=== PATIENT | female | born 1965 | race Caucasian/White ===

== ENCOUNTER 2021-06-24 17:39 | Emergency (ER) | payer OTHER ==
[2021-06-24 17:58] VITALS: BP 153/96; PULSE 93; TEMP 98.2; BMI 24.2
[2021-06-24] MEDS ORDERED: IBUPROFEN 600 MG TABLET (FP) PO ONE ×2 (18:38→18:40)
== END 2021-06-24 23:03 | disposition home or self-care (01) ==
LOC: JERFT 17:39
DX: N64.4 Mastodynia (principal)
CPT/HCPCS: 71046-TC-FY; 71250-TC; 99284-25

== ENCOUNTER 2024-01-23 19:06 | Inpatient (IN) | payer OTHER ==
[2024-01-23] MEDS ORDERED: KETOROLAC TROMETHAMINE 30 MG/1 ML VIAL ONE (20:36)
[2024-01-23] MEDS: KETOROLAC TROMETHAMINE 30 MG/1 ML VIAL IVPUSH ONE (20:50)
[2024-01-23] MEDS: KETOROLAC TROMETHAMINE 30 MG/1 ML VIAL IM ONE (20:51)
[2024-01-23 20:54] LABS: HEMATOCRIT 31.6 % (32.4-45.2); HEMOGLOBIN 10.2 GM/dL (10.7-15.3); MCH 31.5 pg (25.7-33.7); MCHC 32.3 g/dl (32.0-36.0); MEAN CELL VOLUME 97.3 fl (80-96); MEAN PLT VOLUME 8.5 fl (7.5-11.1); PLATELET COUNT 304 10^3/uL (134-434); RBC 3.24 M/mm3 (3.60-5.2); RDW 18.1 % (11.6-15.6); WHITE BLOOD COUNT 21.3 K/mm3 (4.0-10.0)
[2024-01-23 21:03] LABS: INR 1.07 (0.83-1.09); PROTHROMBIN TIME (PATIENT) 12.1 SEC (9.7-13.0)
[2024-01-23 21:05] LABS: ADD RBC MORPHOLOGY YES
[2024-01-23 21:06] LABS: ACTIVATED PTT 29.5 SECONDS (25.2-36.5)
[2024-01-23 21:29] LABS: POTASSIUM 4.1 mmol/L (3.5-5.1)
[2024-01-23 21:31] LABS: ALBUMIN 2.8 g/dl (3.4-5.0); BLOOD UREA NITROGEN 15.4 mg/dL (7-18)
[2024-01-23 21:36] LABS: BILIRUBIN,TOTAL 0.4 mg/dL (0.2-1); TOT PROT 6.2 g/dl (6.4-8.2)
[2024-01-23 22:01] LABS: ANISOCYTOSIS 2+; MACROCYTOSIS 2+; ROULEAU 1+
[2024-01-23] MEDS ORDERED: AZITHROMYCIN IVPB 500 MG/250 ML BAG IVPB ONE (22:03)
[2024-01-23] MEDS ORDERED: CEFTRIAXONE 1 GM/50 ML BAG ONE (22:03)
[2024-01-23] MEDS: AZITHROMYCIN IVPB 500 MG in DEXTROSE 5%-WATER - 250 ML IVPB ONE (22:15)
[2024-01-23] MEDS: SODIUM CHLORIDE 0.9% 1000 ML INFUS.BAG IV STA (22:15)
[2024-01-23] MEDS: CEFTRIAXONE 1 GM in DEXTROSE 5%-WATER - 100 ML IVPB ONE (22:15)
[2024-01-23 22:49] LABS: VENOUS BASE EXCESS -1.7 mmol/L (-2-2); VENOUS O2 SATURATION 25.4 % (70-80); VENOUS PCO2 45.5 mmHg (38-52); VENOUS PH 7.34 (7.310-7.410)
[2024-01-23] MEDS ORDERED: ALBUTEROL SO4 2.5/IPRATROPIUM 0.5 INH SOL 3 ML VIAL.NEB. NEB ONE ×2 (23:13→23:14)
[2024-01-23] MEDS: ALBUTEROL SO4 2.5/IPRATROPIUM 0.5 INH SOL 3 ML VIAL.NEB. NEB ONE (23:30)
[2024-01-24 01:22] LABS: EPI CELLS 24 /uL (0-25.1); HYALINE CASTS 0 /uL (0-3.1); PH,URINE 6.5 (5.0-8.0); URINE APPEARANCE CLEAR; URINE BACTERIA 4743 /uL (0-1359); URINE BILIRUBIN NEGATIVE (NEGATIVE); URINE COLOR YELLOW; URINE GLUCOSE (UA) NEGATIVE (NEGATIVE); URINE KETONE NEGATIVE (NEGATIVE); URINE LEUK ESTERASE TRACE (NEGATIVE); URINE NITRITE POSITIVE (NEGATIVE); URINE PROTEIN NEGATIVE (NEGATIVE); URINE RBC 16 /uL (0-23.9); URINE UROBILINOGEN 0.2 mg/dL (0.2-1.0); URINE WBC 8 /uL (0-25.8)
[2024-01-24 02:19] LABS: URINE CRYSTALS NONE SEEN /hpf
[2024-01-24] MEDS: IBUPROFEN 800 MG/8 ML IJ IVPB ONE (03:03)
[2024-01-24] MEDS: methylPREDNISolone NA SUCC 40 MG/1 ML VIAL IVPUSH SCH ×3 (03:03→17:52)
[2024-01-24] MEDS ORDERED: CYCLOBENZAPRINE HCL 5 MG TABLET ONE (04:50)
[2024-01-24] MEDS: CYCLOBENZAPRINE HCL 10 MG TABLET (FP) PO ONE (04:52)
[2024-01-24] MEDS: ALBUTEROL SO4 HFA INHALER IH PRN (05:26)
[2024-01-24] MEDS ORDERED: ALBUTEROL SO4 HFA INHALER IH ONE (05:26)
[2024-01-24 07:43] LABS: BASO % 0.5 % (0-2.0); HEMATOCRIT 29.2 % (32.4-45.2); HEMOGLOBIN 9.3 GM/dL (10.7-15.3); LYMPH % 1.3 % (8-40); MCH 31.3 pg (25.7-33.7); MCHC 31.9 g/dl (32.0-36.0); MEAN CELL VOLUME 98.3 fl (80-96); MEAN PLT VOLUME 8.7 fl (7.5-11.1); MONO % 4.1 % (3.8-10.2); NEUT % 94.1 % (42.8-82.8); PLATELET COUNT 295 10^3/uL (134-434); RBC 2.97 M/mm3 (3.60-5.2); RDW 17.9 % (11.6-15.6); WHITE BLOOD COUNT 18.4 K/mm3 (4.0-10.0)
[2024-01-24 08:10] LABS: POTASSIUM 4.3 mmol/L (3.5-5.1)
[2024-01-24 08:14] LABS: IRON SERUM < 5 ug/dL (50-175); TOTAL IRON BINDING CAPACITY 268 ug/dL (250-450)
[2024-01-24 08:18] LABS: ALBUMIN 2.4 g/dl (3.4-5.0); BLOOD UREA NITROGEN 13.4 mg/dL (7-18); CALCIUM 7.9 mg/dL (8.5-10.1)
[2024-01-24 08:23] LABS: BILIRUBIN,TOTAL 0.3 mg/dL (0.2-1); TOT PROT 5.4 g/dl (6.4-8.2)
[2024-01-24] MEDS: KETOROLAC TROMETHAMINE 30 MG/1 ML VIAL IVPUSH PRN (09:01)
[2024-01-24] MEDS ORDERED: NICOTINE 14 MG/24 HOURS TOPICAL PATCH TD SCH (10:00)
[2024-01-24 10:27] VITALS: BMI 22.6
[2024-01-24] MEDS: ENOXAPARIN NA (PORCINE) 40 MG/0.4 ML DISP.SYRIN SQ SCH (10:34)
[2024-01-24] MEDS: FAMOTIDINE 20 MG TABLET PO SCH (10:34)
[2024-01-24] MEDS: LISINOPRIL 20 MG TABLET PO SCH (10:34)
[2024-01-24] MEDS: NICOTINE 7 MG/24 HOURS TOPICAL PATCH TD SCH (10:35)
[2024-01-24] MEDS: BUDESONIDE/FORMETEROL FUMARATE 160/4.5 mcg INHALER IH SCH (10:36)
[2024-01-24 10:50] LABS: ANISOCYTOSIS 0; MACROCYTOSIS 0
[2024-01-24] MEDS: BUDESONIDE/FORMETEROL FUMARATE 160/4.5 mcg INHALER IH ONE (10:51)
[2024-01-24] MEDS: ALBUTEROL SO4 2.5/IPRATROPIUM 0.5 INH SOL 3 ML VIAL.NEB. NEB SCH (11:21)
[2024-01-24] MEDS: LIDOCAINE 4% PATCH TP SCH (12:58)
[2024-01-24] MEDS: PIPERACILLIN/TAZOB 4.5 GM 4.5 GM/100 ML BAG IVPB SCH ×2 (13:10→17:11)
[2024-01-24] MEDS: VANCOMYCIN/WATER FOR INJ (PEG) 1,000 MG/200 ML BAG IVPB SCH (13:39)
[2024-01-24] MEDS ORDERED: LIDOCAINE HCL 1%, 10 MG/ML (20ML VIAL) ONE (14:15)
[2024-01-24 15:53] LABS: BF WBC & OTHER NUCLEATED CELLS 4042 /mm3; BODY FLUID MESOTHELIAL 1 %; BODY FLUID MONOCYTE 2 %
[2024-01-24] MEDS: LIDOCAINE 5% TOPICAL PATCH TP SCH (17:50)
[2024-01-24] MEDS ORDERED: PIPERACILLIN/TAZOB 4.5 GM 4.5 GM/100 ML BAG IVPB SCH (18:00)
[2024-01-24] MEDS: DEXTROAMPHETAMINE PO SCH (18:00)
[2024-01-24] MEDS: [UNRECOGNIZED DRUG - OTHER] PO SCH (18:00)
[2024-01-24] MEDS: AMPHETAMINE PO SCH (18:00)
[2024-01-24] MEDS: CYCLOBENZAPRINE HCL 10 MG TABLET (FP) PO PRN (19:50)
[2024-01-24] MEDS ORDERED: CEFTRIAXONE 1 G/50 ML PREMIX 50 ML IVPB ONE (22:00)
[2024-01-24] MEDS: AZITHROMYCIN IVPB 500 MG/250 ML BAG IVPB ONE (22:36)
[2024-01-24] MEDS: LIDOCAINE PATCH REMOVAL MC SCH ×2 (22:36)
[2024-01-25 07:01] LABS: HEMATOCRIT 28.6 % (32.4-45.2); MCH 30.8 pg (25.7-33.7); MCHC 31.5 g/dl (32.0-36.0); MEAN CELL VOLUME 97.8 fl (80-96); MEAN PLT VOLUME 8.5 fl (7.5-11.1); PLATELET COUNT 358 10^3/uL (134-434); RBC 2.92 M/mm3 (3.60-5.2); RDW 17.7 % (11.6-15.6); WHITE BLOOD COUNT 20.5 K/mm3 (4.0-10.0)
[2024-01-25 07:21] LABS: ALBUMIN 2.2 g/dl (3.4-5.0); BLOOD UREA NITROGEN 15.8 mg/dL (7-18); CALCIUM 8.2 mg/dL (8.5-10.1); MAGNESIUM 2.3 mg/dL (1.8-2.4)
[2024-01-25 07:25] LABS: BILIRUBIN,TOTAL 0.3 mg/dL (0.2-1); CREATININE 0.9 mg/dL (0.55-1.3); TOT PROT 5.3 g/dl (6.4-8.2)
[2024-01-25] MEDS: NICOTINE 14 MG/24 HOURS TOPICAL PATCH TD SCH (09:19)
[2024-01-25 09:53] LABS: ANISOCYTOSIS 0; MACROCYTOSIS 0
[2024-01-25 12:40] LABS: INR 1.08 (0.83-1.09); PROTHROMBIN TIME (PATIENT) 12.2 SEC (9.7-13.0)
[2024-01-25] MEDS: LIDOCAINE 5% TOPICAL PATCH TP ONE (14:36)
[2024-01-25 15:47] LABS: HIV INTERPRETATION NEGATIVE (NEGATIVE)
[2024-01-25] MEDS: LIDOCAINE PATCH REMOVAL MC ONE (21:10)
[2024-01-26 09:18] LABS: HEMATOCRIT 26.6 % (32.4-45.2); HEMOGLOBIN 8.8 GM/dL (10.7-15.3); MCH 31.6 pg (25.7-33.7); MEAN CELL VOLUME 95.7 fl (80-96); MEAN PLT VOLUME 8.4 fl (7.5-11.1); PLATELET COUNT 375 10^3/uL (134-434); RBC 2.78 M/mm3 (3.60-5.2); RDW 17.8 % (11.6-15.6); WHITE BLOOD COUNT 15.2 K/mm3 (4.0-10.0)
[2024-01-26 09:39] LABS: ALBUMIN 2.2 g/dl (3.4-5.0); CALCIUM 8.5 mg/dL (8.5-10.1); MAGNESIUM 2.5 mg/dL (1.8-2.4)
[2024-01-26 09:44] LABS: BILIRUBIN,TOTAL 0.3 mg/dL (0.2-1); TOT PROT 5.6 g/dl (6.4-8.2)
[2024-01-26 10:22] LABS: ANISOCYTOSIS 0; MACROCYTOSIS 0
[2024-01-26 10:25] LABS: PLATELET ESTIMATE ADEQUATE
[2024-01-26] MEDS ORDERED: guaiFENesin 200 MG/10 ML 10 ML UNIT-DOSE CUPS PO PRN (11:01)
[2024-01-26] MEDS: guaiFENesin 200 MG/10 ML 10 ML UNIT-DOSE CUPS PO SCH (13:45)
[2024-01-26] MEDS: FAMOTIDINE 20 MG TABLET PO ONE (22:35)
[2024-01-26] MEDS: ACETAMINOPHEN 1000 MG/100 ML BAG IVPB PRN (23:55)
[2024-01-27] MEDS: ALBUTEROL SO4 2.5/IPRATROPIUM 0.5 INH SOL 3 ML VIAL.NEB. NEB ONE (05:42)
[2024-01-27 08:10] LABS: HEMATOCRIT 25.6 % (32.4-45.2); HEMOGLOBIN 8.4 GM/dL (10.7-15.3); MCH 31.6 pg (25.7-33.7); MEAN PLT VOLUME 8.1 fl (7.5-11.1); MONO % 4.1 % (3.8-10.2); NEUT % 89.9 % (42.8-82.8); PLATELET COUNT 387 10^3/uL (134-434); RBC 2.67 M/mm3 (3.60-5.2); RDW 17.7 % (11.6-15.6); WHITE BLOOD COUNT 9.8 K/mm3 (4.0-10.0)
[2024-01-27 08:35] LABS: POTASSIUM 4.2 mmol/L (3.5-5.1)
[2024-01-27 08:52] LABS: BLOOD UREA NITROGEN 26.8 mg/dL (7-18); CALCIUM 8.2 mg/dL (8.5-10.1); MAGNESIUM 2.2 mg/dL (1.8-2.4)
[2024-01-27 08:56] LABS: CREATININE 1.1 mg/dL (0.55-1.3)
[2024-01-27 08:57] LABS: BILIRUBIN,TOTAL 0.5 mg/dL (0.2-1)
[2024-01-27 09:00] LABS: TOT PROT 5.2 g/dl (6.4-8.2)
[2024-01-27] MEDS: ONDANSETRON 4 MG/2 ML VIAL IVPUSH ONE (23:16)
[2024-01-28] MEDS: ACETAMINOPHEN 1000 MG/100 ML BAG IVPB ONE (05:48)
[2024-01-28 07:32] LABS: EOS % 0.1 % (0-4.5); HEMATOCRIT 26.3 % (32.4-45.2); HEMOGLOBIN 8.9 GM/dL (10.7-15.3); LYMPH % 21.7 % (8-40); MCH 31.9 pg (25.7-33.7); MCHC 33.7 g/dl (32.0-36.0); MEAN CELL VOLUME 94.9 fl (80-96); MEAN PLT VOLUME 7.9 fl (7.5-11.1); MONO % 9.1 % (3.8-10.2); NEUT % 69.1 % (42.8-82.8); PLATELET COUNT 429 10^3/uL (134-434); RBC 2.77 M/mm3 (3.60-5.2); RDW 17.7 % (11.6-15.6); WHITE BLOOD COUNT 8.7 K/mm3 (4.0-10.0)
[2024-01-28 07:38] LABS: POTASSIUM 3.8 mmol/L (3.5-5.1)
[2024-01-28 07:43] LABS: BLOOD UREA NITROGEN 19.2 mg/dL (7-18); CALCIUM 8.3 mg/dL (8.5-10.1)
[2024-01-28 07:45] LABS: CREATININE 1.1 mg/dL (0.55-1.3)
[2024-01-28] MEDS: methylPREDNISolone NA SUCC 40 MG/1 ML VIAL IVPUSH SCH (10:29)
[2024-01-28] MEDS: ACETAMINOPHEN 325 MG TABLET (FP) PO PRN (12:08)
[2024-01-29 07:05] LABS: BASO % 0.1 % (0-2.0); EOS % 0.4 % (0-4.5); HEMATOCRIT 27.8 % (32.4-45.2); HEMOGLOBIN 9.3 GM/dL (10.7-15.3); LYMPH % 18.8 % (8-40); MCH 31.5 pg (25.7-33.7); MCHC 33.4 g/dl (32.0-36.0); MEAN CELL VOLUME 94.4 fl (80-96); MEAN PLT VOLUME 7.8 fl (7.5-11.1); MONO % 7.9 % (3.8-10.2); NEUT % 72.8 % (42.8-82.8); PLATELET COUNT 458 10^3/uL (134-434); RBC 2.94 M/mm3 (3.60-5.2); RDW 18.2 % (11.6-15.6); WHITE BLOOD COUNT 10.4 K/mm3 (4.0-10.0)
[2024-01-29 07:28] LABS: POTASSIUM 4.2 mmol/L (3.5-5.1)
[2024-01-29 07:34] LABS: ALBUMIN 2.1 g/dl (3.4-5.0); CALCIUM 8.8 mg/dL (8.5-10.1)
[2024-01-29 07:35] LABS: BLOOD UREA NITROGEN 18.1 mg/dL (7-18); MAGNESIUM 1.7 mg/dL (1.8-2.4)
[2024-01-29 07:38] LABS: CREATININE 0.8 mg/dL (0.55-1.3)
[2024-01-29 07:40] LABS: BILIRUBIN,TOTAL 0.4 mg/dL (0.2-1); TOT PROT 4.9 g/dl (6.4-8.2)
[2024-01-29] MEDS: MAGNESIUM 2GM/50ML STERILE WATER IVPB IVPB ONE (09:10)
[2024-01-29] MEDS: IBUPROFEN 600 MG TABLET (FP) PO PRN (10:45)
[2024-01-29] MEDS: hydrOXYzine PAMOATE 25 MG CAPSULE (FP) PO ONE (12:13)
[2024-01-30 06:58] LABS: HEMATOCRIT 25.7 % (32.4-45.2); HEMOGLOBIN 8.3 GM/dL (10.7-15.3); MCH 31.2 pg (25.7-33.7); MCHC 32.5 g/dl (32.0-36.0); MEAN CELL VOLUME 96.2 fl (80-96); MEAN PLT VOLUME 7.6 fl (7.5-11.1); PLATELET COUNT 450 10^3/uL (134-434); RBC 2.67 M/mm3 (3.60-5.2); RDW 17.7 % (11.6-15.6); WHITE BLOOD COUNT 11.4 K/mm3 (4.0-10.0)
[2024-01-30 07:07] LABS: POTASSIUM 4.1 mmol/L (3.5-5.1)
[2024-01-30 07:11] LABS: ALBUMIN 1.8 g/dl (3.4-5.0); BLOOD UREA NITROGEN 14.7 mg/dL (7-18); CALCIUM 8.6 mg/dL (8.5-10.1); MAGNESIUM 1.8 mg/dL (1.8-2.4)
[2024-01-30 07:14] LABS: CREATININE 0.8 mg/dL (0.55-1.3)
[2024-01-30 07:15] LABS: PHOSPHOROUS 3.1 mg/dL (2.5-4.9)
[2024-01-30 07:16] LABS: BILIRUBIN,TOTAL 0.3 mg/dL (0.2-1); TOT PROT 4.5 g/dl (6.4-8.2)
[2024-01-30] MEDS: predniSONE 10 MG TABLET (UD) PO SCH (10:02)
[2024-01-30] MEDS: LISINOPRIL 20 MG TABLET PO SCH (10:03)
[2024-01-30 16:09] LABS: IG A QN SERUM. 205 mg/dL (87-352)
[2024-01-30] MEDS: ACETAMINOPHEN 1000 MG/100 ML BAG IVPB ONE (17:01)
[2024-01-31] MEDS: IBUPROFEN 800 MG/8 ML IJ IVPB ONE (09:55)
[2024-01-31 12:48] LABS: HEMATOCRIT 31.7 % (32.4-45.2); HEMOGLOBIN 10.2 GM/dL (10.7-15.3); MCH 30.8 pg (25.7-33.7); MCHC 32.3 g/dl (32.0-36.0); MEAN CELL VOLUME 95.3 fl (80-96); MEAN PLT VOLUME 7.8 fl (7.5-11.1); PLATELET COUNT 561 10^3/uL (134-434); RBC 3.33 M/mm3 (3.60-5.2); RDW 17.8 % (11.6-15.6); WHITE BLOOD COUNT 13.9 K/mm3 (4.0-10.0)
[2024-01-31 13:10] LABS: POTASSIUM 4.1 mmol/L (3.5-5.1)
[2024-01-31 13:15] LABS: ALBUMIN 2.1 g/dl (3.4-5.0); CALCIUM 8.7 mg/dL (8.5-10.1)
[2024-01-31 13:16] LABS: BLOOD UREA NITROGEN 13.3 mg/dL (7-18)
[2024-01-31] MEDS: HYDROmorphone HCl 2 MG/ML VIAL IVPUSH ONE ×2 (13:18→20:40)
[2024-01-31 13:19] LABS: CREATININE 0.8 mg/dL (0.55-1.3); PHOSPHOROUS 2.6 mg/dL (2.5-4.9)
[2024-01-31 13:20] LABS: BILIRUBIN,TOTAL 0.6 mg/dL (0.2-1); TOT PROT 5.4 g/dl (6.4-8.2)
[2024-01-31] MEDS: HYDROmorphone HCl 2 MG/ML VIAL IVPB ONE (15:11)
[2024-01-31] MEDS: ACETAMINOPHEN 1000 MG/100 ML BAG IVPB SCH (17:17)
[2024-01-31] MEDS: ACETAMINOPHEN 500 MG TABLET (FP) PO SCH (18:06)
[2024-01-31] MEDS: CYCLOBENZAPRINE HCL 5 MG TABLET PO SCH (23:38)
[2024-02-01] MEDS: HYDROmorphone HCl 2 MG/ML VIAL IVPUSH ONE ×3 (01:05→13:17)
[2024-02-01 07:13] LABS: HEMATOCRIT 34.4 % (32.4-45.2); HEMOGLOBIN 10.9 GM/dL (10.7-15.3); MCH 30.8 pg (25.7-33.7); MCHC 31.7 g/dl (32.0-36.0); MEAN CELL VOLUME 97.2 fl (80-96); MEAN PLT VOLUME 7.8 fl (7.5-11.1); PLATELET COUNT 732 10^3/uL (134-434); RBC 3.54 M/mm3 (3.60-5.2); RDW 17.6 % (11.6-15.6); WHITE BLOOD COUNT 22.5 K/mm3 (4.0-10.0)
[2024-02-01 07:49] LABS: POTASSIUM 5.1 mmol/L (3.5-5.1)
[2024-02-01 07:51] LABS: CALCIUM 9.6 mg/dL (8.5-10.1)
[2024-02-01 07:52] LABS: BLOOD UREA NITROGEN 19.2 mg/dL (7-18); MAGNESIUM 2.1 mg/dL (1.8-2.4)
[2024-02-01 07:55] LABS: CREATININE 1.4 mg/dL (0.55-1.3); PHOSPHOROUS 4.8 mg/dL (2.5-4.9)
[2024-02-01 07:56] LABS: BILIRUBIN,TOTAL 0.5 mg/dL (0.2-1)
[2024-02-01 07:57] LABS: TOT PROT 5.4 g/dl (6.4-8.2)
[2024-02-01] MEDS: predniSONE 20 MG TABLET (UD) PO SCH (10:39)
[2024-02-01] MEDS: guaiFENesin 200 MG/10 ML 10 ML UNIT-DOSE CUPS PO SCH (18:08)
[2024-02-01] MEDS: ACETAMINOPHEN 500 MG TABLET (FP) PO SCH (18:08)
[2024-02-01] MEDS: PIPERACILLIN/TAZOB 4.5 GM 4.5 GM/100 ML BAG IVPB SCH (18:10)
[2024-02-01] MEDS: ALBUTEROL SO4 2.5/IPRATROPIUM 0.5 INH SOL 3 ML VIAL.NEB. NEB SCH (20:12)
[2024-02-01] MEDS: CYCLOBENZAPRINE HCL 5 MG TABLET PO SCH (20:29)
[2024-02-01] MEDS: LIDOCAINE PATCH REMOVAL MC SCH (21:23)
[2024-02-01] MEDS ORDERED: LIDOCAINE PATCH REMOVAL MC SCH (22:00)
[2024-02-01] MEDS: IBUPROFEN 400 MG TABLET (FP) PO ONE (23:55)
[2024-02-02] MEDS: ACETAMINOPHEN 1000 MG/100 ML BAG IVPB ONE (01:21)
[2024-02-02 09:52] LABS: HEMOGLOBIN 9.1 GM/dL (10.7-15.3); MCH 30.9 pg (25.7-33.7); MCHC 32.4 g/dl (32.0-36.0); MEAN CELL VOLUME 95.4 fl (80-96); MEAN PLT VOLUME 7.5 fl (7.5-11.1); PLATELET COUNT 638 10^3/uL (134-434); RBC 2.93 M/mm3 (3.60-5.2); WHITE BLOOD COUNT 13.4 K/mm3 (4.0-10.0)
[2024-02-02] MEDS: NICOTINE 14 MG/24 HOURS TOPICAL PATCH TD SCH (09:53)
[2024-02-02] MEDS: FAMOTIDINE 20 MG TABLET PO SCH (09:53)
[2024-02-02] MEDS: predniSONE 10 MG TABLET (UD) PO SCH (09:53)
[2024-02-02] MEDS: LIDOCAINE 5% TOPICAL PATCH TP SCH (09:53)
[2024-02-02] MEDS: BUDESONIDE/FORMETEROL FUMARATE 160/4.5 mcg INHALER IH SCH (09:57)
[2024-02-02 10:10] LABS: POTASSIUM 3.9 mmol/L (3.5-5.1)
[2024-02-02 10:12] LABS: CALCIUM 9.5 mg/dL (8.5-10.1)
[2024-02-02 10:13] LABS: ALBUMIN 1.8 g/dl (3.4-5.0); BLOOD UREA NITROGEN 22.4 mg/dL (7-18); MAGNESIUM 2.1 mg/dL (1.8-2.4)
[2024-02-02 10:16] LABS: CREATININE 1.6 mg/dL (0.55-1.3); PHOSPHOROUS 3.7 mg/dL (2.5-4.9)
[2024-02-02 10:17] LABS: BILIRUBIN,TOTAL 0.3 mg/dL (0.2-1)
[2024-02-02] MEDS ORDERED: ACETAMINOPHEN 1000 MG/100 ML BAG IVPB PRN (11:53)
[2024-02-02] MEDS: traMADol HCL 50 MG TABLET PO PRN (14:28)
[2024-02-02] MEDS: PIPERACILLIN/TAZOB 3.375 GM 3.375 GM in DEXTROSE 5%-WATER - 50 ML IVPB SCH (21:02)
[2024-02-03] MEDS: PIPERACILLIN/TAZOB 3.375 GM 3.375 GM in DEXTROSE 5%-WATER - 50 ML IVPB SCH (04:11)
[2024-02-03] MEDS: ALBUTEROL SO4 HFA INHALER IH PRN (04:35)
[2024-02-03 05:38] LABS: URINE APPEARANCE CLEAR; URINE BILIRUBIN NEGATIVE (NEGATIVE); URINE COLOR YELLOW; URINE GLUCOSE (UA) NEGATIVE (NEGATIVE); URINE KETONE NEGATIVE (NEGATIVE); URINE LEUK ESTERASE NEGATIVE (NEGATIVE); URINE NITRITE NEGATIVE (NEGATIVE); URINE PROTEIN NEGATIVE (NEGATIVE); URINE UROBILINOGEN 0.2 mg/dL (0.2-1.0)
[2024-02-03 07:55] LABS: BASO % 0.5 % (0-2.0); EOS % 1.5 % (0-4.5); HEMATOCRIT 21.5 % (32.4-45.2); HEMOGLOBIN 7.1 GM/dL (10.7-15.3); LYMPH % 20.7 % (8-40); MCH 31.1 pg (25.7-33.7); MCHC 33.2 g/dl (32.0-36.0); MEAN CELL VOLUME 93.8 fl (80-96); MEAN PLT VOLUME 6.8 fl (7.5-11.1); MONO % 12.6 % (3.8-10.2); NEUT % 64.7 % (42.8-82.8); PLATELET COUNT 556 10^3/uL (134-434); RBC 2.29 M/mm3 (3.60-5.2); RDW 17.9 % (11.6-15.6); WHITE BLOOD COUNT 7.6 K/mm3 (4.0-10.0)
[2024-02-03 08:14] LABS: POTASSIUM 3.7 mmol/L (3.5-5.1)
[2024-02-03 08:18] LABS: CALCIUM 8.7 mg/dL (8.5-10.1)
[2024-02-03 08:19] LABS: ALBUMIN 1.6 g/dl (3.4-5.0); BLOOD UREA NITROGEN 15.1 mg/dL (7-18)
[2024-02-03 08:22] LABS: CREATININE 1.1 mg/dL (0.55-1.3)
[2024-02-03 08:24] LABS: BILIRUBIN,TOTAL 0.3 mg/dL (0.2-1); TOT PROT 4.4 g/dl (6.4-8.2)
[2024-02-03 09:23] VITALS: RESP 18
[2024-02-03] MEDS: CEFTRIAXONE 2 GM-D5W BAG 2 GM/50 ML BAG IVPB SCH (10:34)
[2024-02-03] MEDS ORDERED: POLYETHYLENE GLYCOL (HEALTHYLAX) 3350 17 GM PACKET PO PRN (11:56)
[2024-02-03] MEDS: FERROUS SO4 325 MG TABLET (FP) PO SCH (13:07)
[2024-02-04 10:04] LABS: BASO % 0.5 % (0-2.0); HEMATOCRIT 24.1 % (32.4-45.2); HEMOGLOBIN 7.7 GM/dL (10.7-15.3); LYMPH % 20.2 % (8-40); MCH 30.6 pg (25.7-33.7); MCHC 31.9 g/dl (32.0-36.0); MEAN CELL VOLUME 96.2 fl (80-96); MONO % 8.1 % (3.8-10.2); NEUT % 69.2 % (42.8-82.8); PLATELET COUNT 619 10^3/uL (134-434); RDW 17.4 % (11.6-15.6); WHITE BLOOD COUNT 6.9 K/mm3 (4.0-10.0)
[2024-02-04 16:25] LABS: ALBUMIN 1.8 g/dl (3.4-5.0); BILIRUBIN,TOTAL 0.2 mg/dL (0.2-1); BLOOD UREA NITROGEN 11.6 mg/dL (7-18); CALCIUM 8.8 mg/dL (8.5-10.1); CREATININE 0.9 mg/dL (0.55-1.3); POTASSIUM 3.4 mmol/L (3.5-5.1)
[2024-02-04] MEDS: POTASSIUM CHLORIDE ORAL LIQUID 20 MEQ/15 ML PO ONE (17:35)
[2024-02-04] MEDS: MAG HYDROX/AL HYDROX/SIMETH 30 ML UNIT-DOSE CUP PO PRN (21:19)
[2024-02-05 06:44] VITALS: BP 139/95; PULSE 84; TEMP 98.4
[2024-02-05 09:12] LABS: BASO % 1.3 % (0-2.0); EOS % 2.5 % (0-4.5); HEMATOCRIT 24.2 % (32.4-45.2); HEMOGLOBIN 7.9 GM/dL (10.7-15.3); LYMPH % 16.7 % (8-40); MCH 31.5 pg (25.7-33.7); MCHC 32.8 g/dl (32.0-36.0); MEAN CELL VOLUME 95.9 fl (80-96); MEAN PLT VOLUME 6.8 fl (7.5-11.1); MONO % 7.2 % (3.8-10.2); NEUT % 72.3 % (42.8-82.8); PLATELET COUNT 710 10^3/uL (134-434); RBC 2.52 M/mm3 (3.60-5.2); RDW 17.3 % (11.6-15.6); WHITE BLOOD COUNT 7.3 K/mm3 (4.0-10.0)
[2024-02-05 09:39] LABS: POTASSIUM 4.4 mmol/L (3.5-5.1)
[2024-02-05 09:41] LABS: ALBUMIN 2.1 g/dl (3.4-5.0); BLOOD UREA NITROGEN 11.4 mg/dL (7-18); CALCIUM 9.4 mg/dL (8.5-10.1)
[2024-02-05 09:45] LABS: CREATININE 0.9 mg/dL (0.55-1.3)
[2024-02-05 09:46] LABS: BILIRUBIN,TOTAL 0.1 mg/dL (0.2-1); TOT PROT 5.5 g/dl (6.4-8.2)
== END 2024-02-05 13:48 | disposition home or self-care (01) | DRG 871 ==
LOC: JER 19:06 → JERFT 19:06 → JERBED 22:45 → J4W 01-24 08:38 → J5S 02-01 17:32
PROVIDERS: ADMIT Internal Medicine; ATTEND Internal Medicine
PROC: 0W9B3ZZ Drainage of Left Pleural Cavity, Percutaneous Approach (ICD-10-PCS; principal; 2024-01-25)
PROC: 3E0L317 Introduction of Other Thrombolytic into Pleural Cavity, Percutaneous Approach (ICD-10-PCS; 2024-01-25)
DX: A41.9 Sepsis, unspecified organism (principal); J18.9 Pneumonia, unspecified organism; J96.01 Acute respiratory failure with hypoxia; J91.8 Pleural effusion in other conditions classified elsewhere; J44.0 Chronic obstructive pulmonary disease with (acute) lower respiratory infection; J44.1 Chronic obstructive pulmonary disease with (acute) exacerbation; F17.210 Nicotine dependence, cigarettes, uncomplicated; I10 Essential (primary) hypertension; E83.42 Hypomagnesemia
CPT/HCPCS: 0241U-QW; 32557; 36415; 71045-TC-FY; 71046-TC-FY; 71250-TC; 71275-TC; 76775-TC; 76856-TC; 80048; 80053; 81003; 82042; 82150; 82465; 82550; 82607; 82728; 82746; 82784; 82803; 82945; 83540; 83550; 83605; 83615; 83735; 83986; 84100; 84155; 84157; 84165; 84300; 84478; 84484; 85025; 85027; 85045; 85379; 85610; 85730; 86038; 86140; 86160; 86225; 86334; 86480; 86850; 86900; 86901; 87040; 87070; 87075; 87086; 87102; 87116; 87186; 87205; 87206; 87210; 87389; 88108; 88305-TC; 93005; 93010; 94640; 94660; 97116-GP; 97162-GP; 99285-25; G0480; J0131; J2997; Q9967

== ENCOUNTER 2024-06-05 12:55 | Emergency (ER) | payer OTHER ==
[2024-06-05 13:01] VITALS: BMI 24.4
[2024-06-05] MEDS ORDERED: FAMOTIDINE 20 MG/50 ML IVPB 20 MG/50 ML MG IVPB ONE (13:44)
[2024-06-05] MEDS ORDERED: ACETAMINOPHEN INJECTION 100 ML ONE (13:44)
[2024-06-05] MEDS: FAMOTIDINE 20 MG/50 ML IVPB 20 MG/50 ML MG IVPB ONE (14:01)
[2024-06-05] MEDS: LACTATED RINGERS SOLUTION 1000 ML INFUS.BAG IV ONE (14:01)
[2024-06-05] MEDS: ACETAMINOPHEN 1000 MG/100 ML BAG IVPB ONE (14:01)
[2024-06-05 14:11] VITALS: TEMP 97.6
[2024-06-05 14:14] LABS: ABSOLUTE IMMATURE GRANULOCYTES 0.01 x10^3/uL (0.0-0.031); BASOPHILS # 0.05 x10^3/uL (0.01-0.08); EOSINOPHIL % 0.9 % (0.7-5.8); EOSINOPHILS # 0.05 x10^3/uL (0.04-0.36); HEMATOCRIT 44.3 % (34.1-44.9); HEMOGLOBIN 14.1 g/dL (11.2-15.7); MCHC 31.8 g/dl (32.2-35.5); MEAN CELL VOLUME 100.5 fl (79.4-94.8); MEAN PLT VOLUME 10.6 fl (9.4-12.3); MONOCYTE # 0.33 x10^3/uL (0.24-0.86); PLATELET COUNT 273 x10^3/uL (182-369); RDW 20.7 % (12.3-16.6)
[2024-06-05 14:22] LABS: INR 0.97 (0.83-1.09); PROTHROMBIN TIME (PATIENT) 10.6 SEC (9.7-13.0)
[2024-06-05 14:24] LABS: ACTIVATED PTT 23.6 SECONDS (25.2-36.5)
[2024-06-05 14:34] LABS: CHLORIDE 106 mmol/L (98-107); SODIUM 138 mmol/L (136-145)
[2024-06-05 14:36] LABS: CALCIUM 10.2 mg/dL (8.5-10.1)
[2024-06-05 14:37] LABS: BLOOD UREA NITROGEN 14.5 mg/dL (7-18); CO2 27 mmol/L (21-32); GLUCOSE,RANDOM 78 mg/dL (74-106)
[2024-06-05 14:40] LABS: CREATININE 0.9 mg/dL (0.55-1.3); SGOT/AST 100 U/L (15-37)
[2024-06-05 14:42] LABS: BILIRUBIN,TOTAL 0.3 mg/dL (0.2-1); TOT PROT 8.1 g/dl (6.4-8.2)
[2024-06-05 14:43] LABS: ALK PHOS 94 U/L (45-117)
[2024-06-05 14:47] LABS: ANION GAP 5 mmol/L (4-13); POTASSIUM 7.1 mmol/L (3.5-5.1); SGPT/ALT 40 U/L (13-61)
[2024-06-05 15:23] LABS: EPI CELLS 33 /uL (0-25.1); HYALINE CASTS 2 /uL (0-3.1); PH,URINE 5.5 (5.0-8.0); URINE APPEARANCE CLEAR; URINE BACTERIA 603 /uL (0-1359); URINE BILIRUBIN NEGATIVE (NEGATIVE); URINE COLOR DK YELLOW; URINE GLUCOSE (UA) NEGATIVE (NEGATIVE); URINE KETONE TRACE (NEGATIVE); URINE LEUK ESTERASE NEGATIVE (NEGATIVE); URINE NITRITE NEGATIVE (NEGATIVE); URINE PROTEIN 1+ (NEGATIVE); URINE WBC 12 /uL (0-25.8)
[2024-06-05 15:57] LABS: URINE CRYSTALS PRESENT /hpf; URINE RBC 113 /uL (0-23.9)
[2024-06-05 16:29] LABS: POTASSIUM 4.4 mmol/L (3.5-5.1)
[2024-06-05 16:32] LABS: CALCIUM 9.4 mg/dL (8.5-10.1)
[2024-06-05 16:33] LABS: BLOOD UREA NITROGEN 14.3 mg/dL (7-18)
[2024-06-05 16:34] LABS: POTASSIUM 4.3 mmol/L (3.5-5.1)
[2024-06-05 16:35] LABS: CREATININE 0.9 mg/dL (0.55-1.3)
[2024-06-05 16:36] LABS: CALCIUM 9.4 mg/dL (8.5-10.1)
[2024-06-05 16:37] LABS: ALBUMIN 3.7 g/dl (3.4-5.0); BLOOD UREA NITROGEN 14.7 mg/dL (7-18)
[2024-06-05 16:41] LABS: BILIRUBIN,TOTAL 0.4 mg/dL (0.2-1); TOT PROT 6.6 g/dl (6.4-8.2)
[2024-06-05] MEDS ORDERED: ALBUTEROL SO4 2.5/IPRATROPIUM 0.5 INH SOL 3 ML VIAL.NEB. NEB ONE (17:40)
[2024-06-05] MEDS ORDERED: CEFTRIAXONE 1 G/50 ML PREMIX 50 ML IVPB ONE (17:41)
[2024-06-05] MEDS: ALBUTEROL SO4 2.5/IPRATROPIUM 0.5 INH SOL 3 ML VIAL.NEB. NEB ONE (17:51)
[2024-06-05] MEDS: CEFTRIAXONE 1,000 MG in DEXTROSE 5%-WATER - 50 ML IVPB ONE (17:51)
[2024-06-05 18:13] VITALS: BP 158/83; PULSE 84; RESP 18
== END 2024-06-05 19:20 | disposition home or self-care (01) ==
LOC: JER 12:55
PROC: 3E03329 Introduction of Other Anti-infective into Peripheral Vein, Percutaneous Approach (ICD-10-PCS; principal; 2024-06-05)
PROC: 3E03329 Introduction of Other Anti-infective into Peripheral Vein, Percutaneous Approach (ICD-10-PCS; 2024-06-05)
PROC: 3E033NZ Introduction of Analgesics, Hypnotics, Sedatives into Peripheral Vein, Percutaneous Approach (ICD-10-PCS; 2024-06-05)
PROC: 3E0F7GC Introduction of Other Therapeutic Substance into Respiratory Tract, Via Natural or Artificial Opening (ICD-10-PCS; 2024-06-05)
DX: N39.0 Urinary tract infection, site not specified (principal); K92.2 Gastrointestinal hemorrhage, unspecified; R31.9 Hematuria, unspecified; R11.0 Nausea; R10.12 Left upper quadrant pain; R10.32 Left lower quadrant pain; M54.9 Dorsalgia, unspecified
CPT/HCPCS: 0241U-QW; 36415; 71045-TC-FY; 74177-TC; 80048; 80053; 81003; 83605; 83690; 83735; 84484; 85025; 85610; 85730; 87086; 93005; 93010; 94640; 96365; 96367; 96375; 99285-25; J0131; Q9967